=== PATIENT | female | born 1985 | race American Indian/Alaskan Native ===

== ENCOUNTER 2016-11-13 07:00 | Emergency (ER) | payer SELFPAY ==
[2016-11-13 07:49] VITALS: BP 141/75
--- NOTE | 2016-11-13 08:04 | Emergency Department Report ---
ED Female HPI - General Chief complaint: Urogenital-Female Stated complaint: VAGINAL DISCHARGE Time Seen by Provider: 11/13/16 07:56 Source: patient Mode of arrival: Ambulatory Limitations: No Limitations - History of Present Illness Initial comments: Patient presents c/o white, thick discharge from her vaginal x 4 days. States discharge smells like fish and started as soon as she got off her cycle on 11/10/16. Admits to douching after her cycle. Denies fever, chills, N.V/D, abdomen or flank pain, dysuria, urgency, frequency. Denies recent abx use. No other symptoms or complaints today. LMP 11/05/16. - Related Data Previous Rx's Medication Instructions Recorded Last Taken Type metroNIDAZOLE [Flagyl] 500 mg PO Q12HR #14 tab 11/13/16 Unknown Rx Allergies Allergy/AdvReac Type Severity Reaction Status Date / Time Penicillins Allergy Hives Verified 11/13/16 07:46 ED Review of Systems ROS: Stated complaint: VAGINAL DISCHARGE Other details as noted in HPI Comment: All other systems reviewed and negative ED Past Medical Hx - Medications Home Medications: Home Medications Medication Instructions Recorded Confirmed Last Taken Type metroNIDAZOLE [Flagyl] 500 mg PO Q12HR #14 tab 11/13/16 Unknown Rx ED Physical Exam - General Limitations: No Limitations General appearance: alert, in no apparent distress - Head Head exam: Present: atraumatic, normocephalic - Eye Eye exam: Present: normal appearance, PERRL, EOMI. Absent: scleral icterus, conjunctival injection, periorbital swelling - Neck Neck exam: Present: normal inspection, full ROM. Absent: tenderness, lymphadenopathy - Respiratory Respiratory exam: Present: normal lung sounds bilaterally. Absent: respiratory distress - Cardiovascular Cardiovascular Exam: Present: regular rate, normal rhythm - GI/Abdominal GI/Abdominal exam: Present: soft, normal bowel sounds. Absent: distended, tenderness (No suprapubic tenderness.), guarding, rebound, rigid - Extremities Exam Extremities exam: Present: normal inspection, full ROM. Absent: pedal edema, joint swelling - Back Exam Back exam: Present: normal inspection, full ROM. Absent: tenderness, CVA tenderness (R), CVA tenderness (L) - Neurological Exam Neurological exam: Present: alert, oriented X3, normal gait - Psychiatric Psychiatric exam: Present: normal affect, normal mood - Skin Skin exam: Present: warm, dry, intact, normal color. Absent: rash, cyanosis, diaphoretic, erythema, petechiae, pallor ED Course Vital Signs 11/13/16 07:46 Temperature 97.8 F Pulse Rate 57 L Respiratory 16 Rate Blood Pressure 141/75 O2 Sat by Pulse 100 Oximetry ED Medical Decision Making - Medical Decision Making 31 YOF with symptoms consistent with BV. Patient is stable. She will be DC'd on oral Flagyl (see rx). Patient education, including stopping douching, follow up/ referral, and return instructions provided. She verbalized understanding and is agreeable to plan. Critical care attestation.: If time is entered above; I have spent that time in minutes in the direct care of this critically ill patient, excluding procedure time. ED Disposition Clinical Impression: Bacterial vaginosis Disposition: DISCHARGED TO HOME OR SELFCARE Is pt being admited?: No Does the pt Need Aspirin: No Condition: Stable Instructions: Bacterial Vaginosis (ED) Additional Instructions: Follow-up instructions for care. Stop douching. Remember instructions on female genitalia hygiene. Follow-up with your PCP for follow-up. Return to ED as needed. Prescriptions: metroNIDAZOLE [Flagyl] 500 mg PO Q12HR #14 tab Referrals: [facility] [Outside] - 2-3 Days Forms: STI Treatment and Prevention, Work/School Release Form(ED)
== END 2016-11-13 08:11 | disposition home or self-care (01) ==
LOC: ED 07:00
DX: N76.0 Acute vaginitis (principal); Z88.0 Allergy status to penicillin
CPT/HCPCS: 99282

== ENCOUNTER 2017-01-02 11:23 | Emergency (ER) | payer SELFPAY ==
--- NOTE | 2017-01-02 14:30 | Emergency Department Report ---
Entered by FRANCIS RUBY, acting as scribe for EDITH BENITES PA. - General Chief Complaint: Upper Respiratory Infection Stated Complaint: COLD SX/ COLD SORE Time Seen by Provider: 01/02/17 13:45 Source: patient Mode of arrival: Ambulatory Limitations: No Limitations - History of Present Illness Initial Comments: 31 y/o female with no significant PMHx and PSHx of tonsillectomy, presents to the ED c/o nasal congestion and productive cough beginning several days ago. Associated symptom of facial sinus pressure, but she denies fever, nausea, vomiting, chills, abdominal pain, chest pain, SOB, wheezing, headache, numbness , and weakness. The patient has been taking aria-seltzer cold and flu , dayquil , and nyquil with no alleviation of the symptoms. Secondary c/o cold sore on the right side of the mouth beginning 3 days ago, and patient denies Hx of cold sores. MD Complaint: cough (productive, at night), nasal congestion, other -: days(s) (several days ago) Severity: moderate Quality: other (pressure) Consistency: constant Improves With: nothing Worsens With: other (supine position) Associated Symptoms: rhinorrhea, nasal congestion, cough (productive, worse at night). denies: fever, chills, headache, sore throat, stiff neck, chest pain, shortness of breath, abdominal pain, nausea, vomiting, diarrhea, dysuria, rash, ear pain Treatments Prior to Arrival: "cold medicine" (OTC aria-seltzer cold and flu, dayquil, nyquil with no alleviation of the symptoms) - Related Data Previous Rx's Medication Instructions Recorded Last Taken Type Fexofenadine/Pseudoephedrine 1 each PO BID #60 tab.er.12h 01/02/17 Unknown Rx [Tona-D 12 Hour Tablet] Fluticasone [Flonase] 1 spray NS QDAY #1 bottle 01/02/17 Unknown Rx Oxymetazoline 0.05% [Afrin] 2 spray NS Q12H #1 bottle 01/02/17 Unknown Rx Allergies Allergy/AdvReac Type Severity Reaction Status Date / Time Penicillins Allergy Hives Verified 01/02/17 11:38 ED Review of Systems Comment: All other systems reviewed and negative Constitutional: denies: chills, fever ENT: other (nasal congestion, sinus pressure, cold sore on the right side of the mouth). denies: ear pain, throat pain Respiratory: cough (productive, worse at night). denies: shortness of breath, wheezing Cardiovascular: denies: chest pain Gastrointestinal: denies: abdominal pain, nausea, vomiting, diarrhea Genitourinary: denies: dysuria Musculoskeletal: denies: back pain Skin: denies: rash Neurological: denies: headache ED Past Medical Hx - Past Medical History Previous Medical History?: No - Surgical History Additional Surgical History: D & C. TONSILLECTOMY - Social History Smoking Status: Current Every Day Smoker Substance Use Type: Alcohol - Medications Home Medications: Home Medications Medication Instructions Recorded Confirmed Last Taken Type Fexofenadine/Pseudoephedrine 1 each PO BID #60 tab.er.12h 01/02/17 Unknown Rx [Tona-D 12 Hour Tablet] Fluticasone [Flonase] 1 spray NS QDAY #1 bottle 01/02/17 Unknown Rx Oxymetazoline 0.05% [Afrin] 2 spray NS Q12H #1 bottle 01/02/17 Unknown Rx ED Physical Exam - General Limitations: No Limitations - Other Other exam information: GENERAL: Patient is alert and oriented x 3. No apparent distress, normal gait, atraumatic. HEAD: Head is normocephalic and atraumatic. EYES: Extraocular movements are intact. Pupils are equal, round, and reactive to light and accommodation. EARS: Symmetrical, atraumatic, non tender, ear canal clear with moderate cerumen , tympanic membrane non inflamed. Gross auditory nml bilaterally. NOSE: Nose symmetrical, nontender. Nares appeared normal. MOUTH:Mouth is well hydrated and without lesions. Mucous membranes are moist. Uvula midline. Tongue not elevated. area consistent with cold sore on the right corner of the mouth. Posterior pharynx clear, no exudate or lesions. Patent airway. Noted is some post nasal drainage. NECK: Supple. Non edematous, no carotid bruits. No lymphadenopathy or thyromegaly. LUNGS: Symmetrical with respiration. No wheezing, rales or crackles, CTAB. HEART: Regular rate and rhythm with normal S1/S2 present. No murmurs, rubs, or gallops. ABDOMEN: Soft, nondistended. Nontender to palpation on all quadrants. No organomegaly was noted. Positive bowel sounds. No CVA tenderness. EXTREMITIES/MUSCULOSKELETAL: No cyanosis, clubbing, rash, lesions or edema. Full ROM bilaterally. UE/LE Pulses 2+ bilaterally. LE and UE 5+ strength bilaterally SKIN: Warm and dry. No lesions, ulceration or induration present NEUROLOGIC: No focal deficit. ED Course Vital Signs 01/02/17 01/02/17 11:35 13:22 Temperature 98.2 F 98.3 F Pulse Rate 69 62 Respiratory 19 18 Rate Blood Pressure 151/95 Blood Pressure 118/70 [Left] O2 Sat by Pulse 100 97 Oximetry ED Medical Decision Making - Medical Decision Making Patient was evaluated by the provider in fast track. 31 y/o female with PSHx of tonsillectomy, presents complaining of nasal congestion and productive cough beginning several days ago, and cold sore on the right side of the mouth beginning 3 days ago. Discussed with the patient to follow up with a PCP as referred, and to return to the ED if her symptoms return or worsen. Patient states understanding and will follow instructions. Vital signs stable, patient is in no acute distress. ED Disposition Clinical Impression: Upper respiratory disease Disposition: DISCHARGED TO HOME OR SELFCARE Is pt being admited?: No Does the pt Need Aspirin: No Condition: Stable Instructions: Viral Syndrome (ED) Additional Instructions: Take her medication as prescribed. Follow up with her primary care provider if symptoms persist or gets worse. Prescriptions: Fexofenadine/Pseudoephedrine [Tona-D 12 Hour Tablet] 1 each PO BID #60 tab.er.12h Fluticasone [Flonase] 1 spray NS QDAY #1 bottle Oxymetazoline 0.05% [Afrin] 2 spray NS Q12H #1 bottle Referrals: PRIMARY CARE, [Primary Care Provider] - 3-5 Days [employer] [facility] [Provider Group] - 3-5 Days [facility] [Provider Group] - 3-5 Days [facility] [Provider Group] - 3-5 Days Forms: Work/School Release Form(ED) This documentation as recorded by the TUNG pike GRACE,accurately reflects the service I personally performed and the decisions made by ,EDITH BENITES PA.
[2017-01-02 14:34] VITALS: BP 120/70
== END 2017-01-02 14:35 | disposition home or self-care (01) ==
LOC: ED 11:23
DX: J39.9 Disease of upper respiratory tract, unspecified (principal); F17.200 Nicotine dependence, unspecified, uncomplicated; Z88.0 Allergy status to penicillin; Z90.89 Acquired absence of other organs
CPT/HCPCS: 99282

== ENCOUNTER 2017-03-27 19:44 | Emergency (ER) | payer SELFPAY ==
--- NOTE | 2017-03-28 00:56 | Emergency Department Report ---
ED Female HPI - General Chief complaint: Urogenital-Female Stated complaint: VAGINAL DISCHARGE Time Seen by Provider: 03/28/17 00:52 Source: patient Mode of arrival: Ambulatory Limitations: No Limitations - History of Present Illness Initial comments: Patient reports that she has vaginal discharge with odor 2 days. Denies any abdominal or vaginal pain. Denies any back pain or vaginal bleeding. Denies any urinary burning frequency or urgency. Pain is 0 out of 10. She said she usually gets bacterial vaginosis so she thinks he has bacterial vaginosis. She does not always practice safe sex. Last menstrual period was 03/18/2017. MD Complaint: vaginal discharge Onset/Timin -: days(s) Severity scale (0 -10): 0 Are you Now?: No Associated Symptoms: vaginal discharge. denies: vaginal bleeding, abdominal pain, nausea/vomiting, fever/chills, headaches, loss of appetite, dysuria, hematuria, rash, seizure, shortness of breath, syncope, weakness - Related Data Sexually active: Yes Previous Rx's Medication Instructions Recorded Last Taken Type Fexofenadine/Pseudoephedrine 1 each PO BID #60 tab.er.12h 01/02/17 Unknown Rx [Tona-D 12 Hour Tablet] Fluticasone [Flonase] 1 spray NS QDAY #1 bottle 01/02/17 Unknown Rx Oxymetazoline 0.05% [Afrin] 2 spray NS Q12H #1 bottle 01/02/17 Unknown Rx Doxycycline [Vibramycin CAP] 100 mg PO Q12HR #14 capsule 03/28/17 Unknown Rx Nitrofurantoin [place]/M-Cryst 100 mg PO Q12HR #14 capsule 03/28/17 Unknown Rx [Macrobid CAP] metroNIDAZOLE [Flagyl] 500 mg PO Q12HR #14 tab 03/28/17 Unknown Rx Allergies Allergy/AdvReac Type Severity Reaction Status Date / Time Penicillins Allergy Hives Verified 01/02/17 11:38 ED Review of Systems ROS: Stated complaint: VAGINAL DISCHARGE Other details as noted in HPI Comment: All other systems reviewed and negative Constitutional: denies: chills, fever Eyes: denies: eye pain, vision change ENT: denies: ear pain, throat pain, congestion Respiratory: no symptoms reported Cardiovascular: denies: chest pain, palpitations, edema, syncope Gastrointestinal: denies: abdominal pain, nausea, vomiting Genitourinary: discharge. denies: urgency, dysuria, frequency, hematuria, abnormal menses, dyspareunia Musculoskeletal: denies: back pain, joint swelling, arthralgia, myalgia Skin: denies: rash Neurological: denies: headache ED Past Medical Hx - Past Medical History Previous Medical History?: No - Surgical History Past Surgical History?: Yes Additional Surgical History: D & C. TONSILLECTOMY - Family History Family history: no significant - Social History Smoking Status: Never Smoker Substance Use Type: Alcohol - Medications Home Medications: Home Medications Medication Instructions Recorded Confirmed Last Taken Type Fexofenadine/Pseudoephedrine 1 each PO BID #60 tab.er.12h 01/02/17 Unknown Rx [Tona-D 12 Hour Tablet] Fluticasone [Flonase] 1 spray NS QDAY #1 bottle 01/02/17 Unknown Rx Oxymetazoline 0.05% [Afrin] 2 spray NS Q12H #1 bottle 01/02/17 Unknown Rx Doxycycline [Vibramycin CAP] 100 mg PO Q12HR #14 capsule 03/28/17 Unknown Rx Nitrofurantoin [place]/M-Cryst 100 mg PO Q12HR #14 capsule 03/28/17 Unknown Rx [Macrobid CAP] metroNIDAZOLE [Flagyl] 500 mg PO Q12HR #14 tab 03/28/17 Unknown Rx ED Physical Exam - General Limitations: No Limitations General appearance: alert, in no apparent distress - Head Head exam: Present: atraumatic, normocephalic, normal inspection - Eye Eye exam: Present: normal appearance, PERRL, EOMI. Absent: scleral icterus, conjunctival injection, periorbital swelling, periorbital tenderness Pupils: Present: normal accommodation - ENT ENT exam: Present: normal exam, normal orophraynx, mucous membranes moist, TM's normal bilaterally, normal external ear exam - Neck Neck exam: Present: normal inspection, full ROM. Absent: tenderness, meningismus, lymphadenopathy - Expanded Neck Exam Expanded Neck exam: Absent: tenderness, midline deformity, anterior neck swelling, tracheal deviation - Respiratory Respiratory exam: Present: normal lung sounds bilaterally. Absent: respiratory distress, chest wall tenderness - Cardiovascular Cardiovascular Exam: Present: regular rate, normal rhythm, normal heart sounds - GI/Abdominal GI/Abdominal exam: Present: soft, normal bowel sounds. Absent: distended, tenderness, guarding, rebound, rigid - External exam: Present: normal external exam. Absent: erythema, swelling, lesions, lacerations, ecchymosis, bleeding Speculum exam: Present: vaginal discharge, cervical discharge. Absent: erythema , vaginal bleeding, foreign body, tissue, laceration Bi-manual exam: Present: normal bi-manual exam. Absent: cervical motion tendernes, adnexal tenderness, adnexal mass, uterine enlargement, uterine tenderness - Extremities Exam Extremities exam: Present: normal inspection, full ROM, normal capillary refill. Absent: tenderness, pedal edema, joint swelling, calf tenderness - Back Exam Back exam: Present: normal inspection, full ROM. Absent: tenderness, CVA tenderness (R), CVA tenderness (L), muscle spasm, paraspinal tenderness, vertebral tenderness, rash noted - Neurological Exam Neurological exam: Present: alert, oriented X3, normal gait, reflexes normal. Absent: motor sensory deficit - Psychiatric Psychiatric exam: Present: normal affect, normal mood - Skin Skin exam: Present: warm, dry, intact, normal color. Absent: rash ED Course Vital Signs 03/27/17 20:51 Temperature 99.2 F Pulse Rate 77 Respiratory 18 Rate Blood Pressure 139/88 O2 Sat by Pulse 98 Oximetry - Reevaluation(s) Reevaluation #1: 03/28/17 03:10 Patient given azithromycin 1 g by mouth in the emergency room to cover chlamydia. Patient with positive trichomonas negative Yeast and greater than 20 % to cells on wet prep. Urinalysis is also positive for bacterial infection and test is negative. Patient shows to be treated empirically for gonorrhea and chlamydia. She is allergic to penicillin so alternative will be doxycycline and I spoke with her about this. ED Medical Decision Making - Lab Data Lab Results 03/28/17 Range/Units 01:00 Urine Color Yellow (Yellow) Urine Turbidity Cloudy (Clear) Urine pH 5.0 (5.0-7.0) Ur Specific [place] 1.024 (1.003-1.030) Urine Protein <15 mg/dl (Negative) mg/dL Urine Glucose (UA) Neg (Negative) mg/dL Urine Ketones Neg (Negative) mg/dL Urine Blood Neg (Negative) Urine Nitrite Neg (Negative) Urine Bilirubin Neg (Negative) Urine Urobilinogen < 2.0 (<2.0) mg/dL Ur Leukocyte Esterase Mod (Negative) Urine WBC (Auto) 22.0 H (0.0-6.0) /HPF Urine RBC (Auto) 3.0 (0.0-6.0) /HPF U Epithel Cells (Auto) 32.0 H (0-13.0) /HPF Urine Bacteria (Auto) 1+ (Negative) /HPF Urine WBC Clumps 1+ /HPF Urine HCG, Qual Negative (Negative) Urine culture pending [facility] pending Positive Trichomonas and greater than 20% clue cells. Negative - Medical Decision Making ED course: Patient here complaining of foul smelling discharge 2 days. Patient was tested for gonorrhea and chlamydia and results are pending. Wet prep reveals the patient has positive trichomonas, positive bacterial vaginosis and negative use. Urine positive for urinary tract infection without any blood and urine cultures sent and pending. I discussed results with patient and she opts to be treated for gonorrhea and chlamydia instead of waiting for results. Patient given azithromycin 1 g. Emergency room to cover chlamydia and she is allergic to penicillin so she will be treated for gonorrhea and doxycycline , Bacterial vaginosis and Trichomonas with Flagyl. Patient will be treated for urinary tract infection with Macrobid. This understands instructions and discharged home in stable condition with prescription for doxycycline, Flagyl and Macrobid. Encouraged her to tell her partner that she was treated for STD and emergency room and positive for Trichomonas. I also encourage her that she needs to practice safe sex and follow up with health department in 7-10 days for repeat STD check. Critical care attestation.: If time is entered above; I have spent that time in minutes in the direct care of this critically ill patient, excluding procedure time. ED Disposition Clinical Impression: BV (bacterial vaginosis), Trichomoniasis of vagina, STD (female), Vaginal discharge, Acute cystitis without hematuria Disposition: DC-01 TO HOME OR SELFCARE Is pt being admited?: No Does the pt Need Aspirin: No Condition: Stable Instructions: Bacterial Vaginosis (ED), Trichomoniasis (ED), Urinary Tract Infection in Women (ED), Safe Sex (ED), Sexually Transmitted Diseases (ED) Additional Instructions: refrain from having sex next 2 week Practice safe sex tell partner that you treated for STD in emergency room and they will need to get tested. Follow-up with health department in 7-10 days for repeat testing Please do not drink alcohol while taking Flagyl because the ear will have severe nausea vomiting and stomach upset. Prescriptions: Doxycycline [Vibramycin CAP] 100 mg PO Q12HR #14 capsule metroNIDAZOLE [Flagyl] 500 mg PO Q12HR #14 tab Nitrofurantoin Magoffin/M-Cryst [Macrobid CAP] 100 mg PO Q12HR #14 capsule Referrals: PRIMARY CARE, [Primary Care Provider] - 3-[address] [facility] [Outside] - 7-10 days Forms: STI Treatment and Prevention, Work/School Release Form(ED)
[2017-03-28 01:42] LABS: Bacteria,Urine 1+ /HPF (Negative); Bilirubin,Urine NEG (Negative); Blood,Urine NEG (Negative); Ketones,Urine NEG (Negative); Leukocyte Esterase,Urine MOD (Negative); Nitrite,Urine NEG (Negative); Protein,Urine <15 mg/dL mg/dL (Negative); Urobilinogen,Urine < 2.0 mg/dL (<2.0)
[2017-03-28] MEDS ORDERED: ZITHROMAX PO ONE (03:08)
[2017-03-28 03:31] VITALS: BP 155/81
== END 2017-03-28 03:30 | disposition home or self-care (01) ==
LOC: ED 19:44
DX: N76.0 Acute vaginitis (principal); A59.01 Trichomonal vulvovaginitis; N30.00 Acute cystitis without hematuria; Z88.0 Allergy status to penicillin
CPT/HCPCS: 81001; 81025; 87086; 87210; 87591; 99284

== ENCOUNTER → 2018-06-04 12:10 | Emergency (ER) | payer SELFPAY | END | disposition left against medical advice (07) | LOC: ED 12:10 | DX: J00 Acute nasopharyngitis [common cold] (principal); Z53.21 Procedure and treatment not carried out due to patient leaving prior to being seen by health care provider ==

== ENCOUNTER 2018-06-05 14:53 | Emergency (ER) | payer SELFPAY ==
[2018-06-05] MEDS ORDERED: TESSALON PERLES PO ONE (15:33)
--- NOTE | 2018-06-05 15:58 | Emergency Department Report ---
- General Chief Complaint: Upper Respiratory Infection Stated Complaint: CHEST COLD Time Seen by Provider: 06/05/18 15:29 Source: patient Mode of arrival: Ambulatory Limitations: No Limitations - History of Present Illness Initial Comments: This is a 32-year-old female nontoxic, well nourished in appearance, no acute signs of distress presents to the ED with c/o of productive cough, rhinorrhea, nasal congestion x4 days. Patient describes productive cough as yellow mucus production. Patient denies any sick contact. Patient denies any recent travels , long car, recent hospital stays. Patient denies any calf pain or calf tenderness. Patient denies any chest pain, short of breath, fever, chills, nausea, vomiting, hemoptysis, numbness, tingling, headache or stiff neck. Patient stated allergies to PCN. Denies significant PMH. MD Complaint: cough, rhinorrhea, nasal congestion -: days(s) (4) Severity: mild Severity scale (0 -10): 0 Consistency: constant Improves With: nothing Worsens With: nothing Associated Symptoms: rhinorrhea, nasal congestion, cough. denies: fever, chills , myalgias, diaphoresis, headache, sore throat, stiff neck, chest pain, shortness of breath, abdominal pain, nausea, vomiting, diarrhea, dysuria, rash, confusion, right sweats, weight loss, epistaxis, hoarseness, ear pain Treatments Prior to Arrival: none - Related Data Previous Rx's Medication Instructions Recorded Last Taken Type Fexofenadine/Pseudoephedrine 1 each PO BID #60 tab.er.12h 01/02/17 Unknown Rx [Tona-D 12 Hour Tablet] Fluticasone [Flonase] 1 spray NS QDAY #1 bottle 01/02/17 Unknown Rx Oxymetazoline 0.05% [Afrin] 2 spray NS Q12H #1 bottle 01/02/17 Unknown Rx Doxycycline [Vibramycin CAP] 100 mg PO Q12HR #14 capsule 03/28/17 Unknown Rx Nitrofurantoin [place]/M-Cryst 100 mg PO Q12HR #14 capsule 03/28/17 Unknown Rx [Macrobid CAP] metroNIDAZOLE [Flagyl] 500 mg PO Q12HR #14 tab 03/28/17 Unknown Rx Azithromycin [Zithromax Z-KASSANDRA] 250 mg PO DAILY #6 tablet 06/05/18 Unknown Rx Benzonatate [Tessalon Perle] 100 mg PO DAILY PRN #20 capsule 06/05/18 Unknown Rx Ibuprofen [Motrin] 600 mg PO Q8H PRN #30 tablet 06/05/18 Unknown Rx Prednisone [predniSONE 10 mg 10 mg PO .TAPER #1 tab.ds.pk 06/05/18 Unknown Rx (6-Day Pack, 21 Tabs)] Allergies Allergy/AdvReac Type Severity Reaction Status Date / Time Penicillins Allergy Hives Verified 01/02/17 11:38 ED Review of Systems ROS: Stated complaint: CHEST COLD Other details as noted in HPI Constitutional: denies: chills, fever Eyes: denies: eye pain, eye discharge, vision change ENT: denies: ear pain, throat pain Respiratory: cough. denies: shortness of breath, wheezing Cardiovascular: denies: chest pain, palpitations Endocrine: no symptoms reported Gastrointestinal: denies: abdominal pain, nausea, vomiting, diarrhea Genitourinary: denies: urgency, dysuria, discharge Musculoskeletal: denies: back pain, joint swelling, arthralgia Skin: denies: rash, lesions Neurological: denies: headache, weakness, paresthesias Psychiatric: denies: anxiety, depression Hematological/Lymphatic: denies: easy bleeding, easy bruising ED Past Medical Hx - Past Medical History Previous Medical History?: No - Surgical History Past Surgical History?: Yes Additional Surgical History: D & C. TONSILLECTOMY - Social History Smoking Status: Current Every Day Smoker Substance Use Type: Alcohol - Medications Home Medications: Home Medications Medication Instructions Recorded Confirmed Last Taken Type Fexofenadine/Pseudoephedrine 1 each PO BID #60 tab.er.12h 01/02/17 Unknown Rx [Tona-D 12 Hour Tablet] Fluticasone [Flonase] 1 spray NS QDAY #1 bottle 01/02/17 Unknown Rx Oxymetazoline 0.05% [Afrin] 2 spray NS Q12H #1 bottle 01/02/17 Unknown Rx Doxycycline [Vibramycin CAP] 100 mg PO Q12HR #14 capsule 03/28/17 Unknown Rx Nitrofurantoin [place]/M-Cryst 100 mg PO Q12HR #14 capsule 03/28/17 Unknown Rx [Macrobid CAP] metroNIDAZOLE [Flagyl] 500 mg PO Q12HR #14 tab 03/28/17 Unknown Rx Azithromycin [Zithromax Z-KASSANDRA] 250 mg PO DAILY #6 tablet 06/05/18 Unknown Rx Benzonatate [Tessalon Perle] 100 mg PO DAILY PRN #20 capsule 06/05/18 Unknown Rx Ibuprofen [Motrin] 600 mg PO Q8H PRN #30 tablet 06/05/18 Unknown Rx Prednisone [predniSONE 10 mg 10 mg PO .TAPER #1 tab.ds.pk 06/05/18 Unknown Rx (6-Day Pack, 21 Tabs)] ED Physical Exam - General Limitations: No Limitations General appearance: alert, in no apparent distress - Head Head exam: Present: atraumatic, normocephalic - Eye Eye exam: Present: normal appearance Pupils: Present: normal accommodation - ENT ENT exam: Present: normal exam, mucous membranes moist - Neck Neck exam: Present: normal inspection, full ROM. Absent: tenderness, meningismus, lymphadenopathy - Respiratory Respiratory exam: Present: normal lung sounds bilaterally. Absent: respiratory distress, wheezes, rales, rhonchi, stridor, chest wall tenderness, accessory muscle use, decreased breath sounds, prolonged expiratory - Cardiovascular Cardiovascular Exam: Present: regular rate, normal rhythm, normal heart sounds. Absent: bradycardia, tachycardia, irregular rhythm, systolic murmur, diastolic murmur, rubs, gallop - GI/Abdominal GI/Abdominal exam: Present: soft, normal bowel sounds - Extremities Exam Extremities exam: Present: normal inspection, full ROM, normal capillary refill. Absent: tenderness - Back Exam Back exam: Present: normal inspection, full ROM - Neurological Exam Neurological exam: Present: alert, oriented X3, normal gait - Psychiatric Psychiatric exam: Present: normal affect, normal mood - Skin Skin exam: Present: warm, dry, intact, normal color. Absent: rash ED Course Vital Signs 06/05/18 15:15 Temperature 98.2 F Pulse Rate 86 Blood Pressure 129/83 O2 Sat by Pulse 97 Oximetry - Reevaluation(s) Reevaluation #1: 06/05/18 15:52 Patient is speaking in full sentences with no signs of distress noted. ED Medical Decision Making - Medical Decision Making This is a 32-year-old female that presents with bronchitis. Patient is stable and was examined by me. Chest x-ray has been obtained and dictated by radiologist with normal exam. Patient is notified of x-ray results with no questions noted. Due to patient having symptoms of upper respiratory infection and worsening I will treat patient empirically with zpak. Patient was instructed to increase hydration, rest and take Motrin for fever episodes. Patient received tesslone perrls in the ED. Vitals stable. Patient is nonfebrile and normal heart rate. Patient was instructed Follow-up with a primary care doctor in 3-5 days or if symptoms worsen and continue return to emergency room as soon as possible. At time time of discharge, the patient does not seem toxic or ill in appearance. No acute signs of distress noted. Patient agrees to discharge treatment plan of care. No further questions noted by the patient. Critical care attestation.: If time is entered above; I have spent that time in minutes in the direct care of this critically ill patient, excluding procedure time. ED Disposition Clinical Impression: Bronchitis Disposition: DC-01 TO HOME OR SELFCARE Is pt being admited?: No Does the pt Need Aspirin: No Condition: Stable Instructions: Acute Bronchitis (ED) Additional Instructions: Follow-up with a primary care doctor in 3-5 days or if symptoms worsen and continue return to emergency room as soon as possible. Prescriptions: Azithromycin [Zithromax Z-KASSANDRA] 250 mg PO DAILY #6 tablet Benzonatate [Tessalon Perle] 100 mg PO DAILY PRN #20 capsule PRN Reason: Cough Ibuprofen [Motrin] 600 mg PO Q8H PRN #30 tablet PRN Reason: Pain Prednisone [predniSONE 10 mg (6-Day Pack, 21 Tabs)] 10 mg PO .TAPER #1 tab.ds.pk Referrals: PRIMARY MD NOE [Referring] - 3-5 Days CHYNA STEWART MD [Staff Physician] - 3-5 Days [facility] [Outside] - 3-5 Days [facility] [Outside] - 3-5 Days Forms: Work/School Release Form(ED)
--- NOTE | 2018-06-05 16:20 | XRay Report ---
FINAL REPORT EXAM: XR CHEST ROUTINE 2V HISTORY: cough TECHNIQUE: Two view chest PA and lateral PRIORS: None. FINDINGS: Cardiac and mediastinal contours are unremarkable. No focal pulmonary infiltrate is identified. No pleural fluid collection seen. Pulmonary vasculature is unremarkable. IMPRESSION: Negative two-view chest
[2018-06-05 16:40] VITALS: BP 136/72
== END 2018-06-05 16:41 | disposition home or self-care (01) ==
LOC: ED 14:53
DX: J40 Bronchitis, not specified as acute or chronic (principal); F17.200 Nicotine dependence, unspecified, uncomplicated; Z90.89 Acquired absence of other organs; Z88.0 Allergy status to penicillin; Z79.899 Other long term (current) drug therapy
CPT/HCPCS: 71046; 99283

== ENCOUNTER 2018-10-24 02:51 | Emergency (ER) | payer SELFPAY ==
[2018-10-24 03:01] VITALS: BP 122/74
--- NOTE | 2018-10-24 04:07 | Emergency Department Report ---
ED Female HPI - General Chief complaint: Urogenital-Female Stated complaint: VAG DISCHARGE Time Seen by Provider: 10/24/18 04:00 Source: patient, family Mode of arrival: Ambulatory Limitations: No Limitations - History of Present Illness Initial comments: Patient 33-year-old -[place] female who presents for vaginal discharge of white thick malodorous fishy smell 3 days patient is and concerning for STI endorses this is beefy if she's had BV previously there is no rashes lesions or open sores on his abdominal pain cramping nausea vomiting no fever or chills plan we'll obtain wet prep UA hCG GC chlamydia , LMP was 2 weeks ago Complaint: vaginal discharge Onset/Timin -: days(s) Radiation: non-radiating Severity: moderate Severity scale (0 -10): 4 Quality: other (discharg white thick maloderous ) Consistency: constant Improves with: none Worsens with: none Are you Now?: No Last Menstrual Period: 10/07/18 EDC: 07/14/19 Associated Symptoms: vaginal discharge - Related Data Sexually active: Yes : 2 Para: 2 A: 0 Previous Rx's Medication Instructions Recorded Last Taken Type Fexofenadine/Pseudoephedrine 1 each PO BID #60 tab.er.12h 01/02/17 Unknown Rx [Tona-D 12 Hour Tablet] Fluticasone [Flonase] 1 spray NS QDAY #1 bottle 01/02/17 Unknown Rx Oxymetazoline 0.05% [Afrin] 2 spray NS Q12H #1 bottle 01/02/17 Unknown Rx Doxycycline [Vibramycin CAP] 100 mg PO Q12HR #14 capsule 03/28/17 Unknown Rx Nitrofurantoin [place]/M-Cryst 100 mg PO Q12HR #14 capsule 03/28/17 Unknown Rx [Macrobid CAP] metroNIDAZOLE [Flagyl] 500 mg PO Q12HR #14 tab 03/28/17 Unknown Rx Azithromycin [Zithromax Z-KASSANDRA] 250 mg PO DAILY #6 tablet 06/05/18 Unknown Rx Benzonatate [Tessalon Perle] 100 mg PO DAILY PRN #20 capsule 06/05/18 Unknown Rx Ibuprofen [Motrin] 600 mg PO Q8H PRN #30 tablet 06/05/18 Unknown Rx Prednisone [predniSONE 10 mg 10 mg PO .TAPER #1 tab.ds.pk 06/05/18 Unknown Rx (6-Day Pack, 21 Tabs)] Doxycycline [Vibramycin CAP] 100 mg PO Q12HR #20 capsule 10/24/18 Unknown Rx Allergies Allergy/AdvReac Type Severity Reaction Status Date / Time Penicillins Allergy Hives Verified 01/02/17 11:38 ED Review of Systems ROS: Stated complaint: VAG DISCHARGE Other details as noted in HPI Constitutional: denies: chills, fever Eyes: denies: eye pain, eye discharge, vision change ENT: denies: ear pain, throat pain Respiratory: denies: cough, shortness of breath, wheezing Cardiovascular: denies: chest pain, palpitations Endocrine: no symptoms reported Gastrointestinal: denies: abdominal pain, nausea, vomiting, diarrhea Genitourinary: discharge Musculoskeletal: denies: back pain, joint swelling, arthralgia Skin: denies: rash, lesions Neurological: denies: headache, weakness, paresthesias Psychiatric: denies: anxiety, depression Hematological/Lymphatic: denies: easy bleeding, easy bruising ED Past Medical Hx - Past Medical History Previous Medical History?: No - Surgical History Past Surgical History?: Yes Additional Surgical History: D & C. TONSILLECTOMY - Social History Smoking Status: Current Every Day Smoker Substance Use Type: None - Medications Home Medications: Home Medications Medication Instructions Recorded Confirmed Last Taken Type Fexofenadine/Pseudoephedrine 1 each PO BID #60 tab.er.12h 01/02/17 Unknown Rx [Tona-D 12 Hour Tablet] Fluticasone [Flonase] 1 spray NS QDAY #1 bottle 01/02/17 Unknown Rx Oxymetazoline 0.05% [Afrin] 2 spray NS Q12H #1 bottle 01/02/17 Unknown Rx Doxycycline [Vibramycin CAP] 100 mg PO Q12HR #14 capsule 03/28/17 Unknown Rx Nitrofurantoin [place]/M-Cryst 100 mg PO Q12HR #14 capsule 03/28/17 Unknown Rx [Macrobid CAP] metroNIDAZOLE [Flagyl] 500 mg PO Q12HR #14 tab 03/28/17 Unknown Rx Azithromycin [Zithromax Z-KASSANDRA] 250 mg PO DAILY #6 tablet 06/05/18 Unknown Rx Benzonatate [Tessalon Perle] 100 mg PO DAILY PRN #20 capsule 06/05/18 Unknown Rx Ibuprofen [Motrin] 600 mg PO Q8H PRN #30 tablet 06/05/18 Unknown Rx Prednisone [predniSONE 10 mg 10 mg PO .TAPER #1 tab.ds.pk 06/05/18 Unknown Rx (6-Day Pack, 21 Tabs)] Doxycycline [Vibramycin CAP] 100 mg PO Q12HR #20 capsule 10/24/18 Unknown Rx ED Physical Exam - General Limitations: No Limitations General appearance: alert, in no apparent distress - Head Head exam: Present: atraumatic, normocephalic - Eye Eye exam: Present: normal appearance - ENT ENT exam: Present: mucous membranes moist - Neck Neck exam: Present: normal inspection - Respiratory Respiratory exam: Present: normal lung sounds bilaterally. Absent: respiratory distress - Cardiovascular Cardiovascular Exam: Present: regular rate, normal rhythm. Absent: systolic murmur, diastolic murmur, rubs, gallop - GI/Abdominal GI/Abdominal exam: Present: soft, normal bowel sounds - Rectal Rectal exam: Present: deferred - External exam: Present: normal external exam. Absent: erythema, swelling, lesions, lacerations, ecchymosis, bleeding Speculum exam: Present: erythema, vaginal discharge (white thick malodorous ). Absent: cervical discharge, vaginal bleeding, foreign body, tissue, laceration Bi-manual exam: Absent: cervical motion tendernes - Extremities Exam Extremities exam: Present: normal inspection - Back Exam Back exam: Present: normal inspection, full ROM. Absent: tenderness, CVA tenderness (R), CVA tenderness (L) - Neurological Exam Neurological exam: Present: alert, oriented X3 - Psychiatric Psychiatric exam: Present: normal affect, normal mood - Skin Skin exam: Present: warm, dry, intact, normal color. Absent: rash ED Course Vital Signs 10/24/18 02:56 Temperature 98 F Pulse Rate 67 Respiratory 18 Rate Blood Pressure 122/74 O2 Sat by Pulse 99 Oximetry ED Medical Decision Making - Lab Data Labs 10/24/18 10/24/18 04:00 04:00 Urine Color Neena Urine Turbidity Slightly-cloudy Urine pH 5.0 Ur Specific Hensley 1.030 Urine Protein 30 mg/dl Urine Glucose (UA) Neg Urine Ketones Tr Urine Blood Neg Urine Nitrite Neg Urine Bilirubin Neg Urine Urobilinogen 4.0 Ur Leukocyte Esterase Lg Urine WBC (Auto) 43.0 H Urine RBC (Auto) 37.0 U Epithel Cells (Auto) 30.0 H Urine Bacteria (Auto) 2+ Hyaline Casts 4 Urine Mucus 3+ Urine HCG, Qual Negative wet prep: pos clues, and moderate Trichomonas - Radiology Data Radiology results: report reviewed, image reviewed (versus October 26.) - Medical Decision Making Wet prep for trichomonas includes no cmt on vaginal exam treated for Trichomonas STI follow up PCP N2 to 3 days department for HIV and HSV screening return to emergency should symptoms worsen patient verbalizes agreement and understanding of the discharge plan will be DC'd to home in stable condition at this time Critical care attestation.: If time is entered above; I have spent that time in minutes in the direct care of this critically ill patient, excluding procedure time. ED Disposition Clinical Impression: STI (sexually transmitted infection), Trichomonas vaginitis, BV (bacterial vaginosis) Disposition: DC-01 TO HOME OR SELFCARE Is pt being admited?: No Does the pt Need Aspirin: No Condition: Stable Instructions: Bacterial Vaginosis (ED), Sexually Transmitted Diseases (ED), Trichomoniasis (ED) Prescriptions: Doxycycline [Vibramycin CAP] 100 mg PO Q12HR #20 capsule Referrals: PRIMARY CARE, [Primary Care Provider] - 3-5 Days Forms: STI Treatment and Prevention Time of Disposition: 05:41
[2018-10-24 04:52] LABS: Bacteria,Urine 2+ /HPF (Negative); Bilirubin,Urine NEG (Negative); Blood,Urine NEG (Negative); Color,Urine Amber (Yellow); Hyaline Casts,Urine 4 /LPF; Mucus,Urine 3+ /HPF
[2018-10-24 04:59] LABS: HCG Qualitative,Urine Negative (Negative)
[2018-10-24] MEDS ORDERED: FLAGYL PO ONE (05:38)
[2018-10-24] MEDS ORDERED: ZITHROMAX PO ONE (05:38)
[2018-10-24] MEDS ORDERED: XYLOCAINE 1% MPF 5 mL INFILTRATI ONE (05:38)
[2018-10-24] MEDS ORDERED: ROCEPHIN IM ONE (05:38)
== END 2018-10-24 07:00 | disposition home or self-care (01) ==
LOC: ED 02:51
DX: N76.0 Acute vaginitis (principal); A59.01 Trichomonal vulvovaginitis; B96.89 Other specified bacterial agents as the cause of diseases classified elsewhere; F17.200 Nicotine dependence, unspecified, uncomplicated; Z90.89 Acquired absence of other organs; Z88.0 Allergy status to penicillin
CPT/HCPCS: 81001; 81025; 87210; 87591; 96372; 99284; J0696

== ENCOUNTER 2018-12-01 17:11 | Emergency (ER) | payer OTHER ==
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
[2018-12-01 17:21] VITALS: BP 141/86
[2018-12-01] MEDS ORDERED: TORADOL IM ONE (20:30)
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
== END 2018-12-01 20:51 | disposition home or self-care (01) ==
LOC: ED 17:11
DX: S39.012A Strain of muscle, fascia and tendon of lower back, initial encounter (principal); M54.41 Lumbago with sciatica, right side; F17.200 Nicotine dependence, unspecified, uncomplicated; Z90.89 Acquired absence of other organs; Z88.0 Allergy status to penicillin; V89.2XXA Person injured in unspecified motor-vehicle accident, traffic, initial encounter; Y93.89 Activity, other specified; Y99.8 Other external cause status; Y92.410 Unspecified street and highway as the place of occurrence of the external cause
CPT/HCPCS: 72100; 96372; 99283; J1885

== ENCOUNTER 2019-08-24 10:30 | Emergency (ER) | payer SELFPAY ==
[2019-08-24 11:28] VITALS: BP 129/89
--- NOTE | 2019-08-24 11:32 | Emergency Department Report ---
HPI - General Chief Complaint: Upper Respiratory Infection Time Seen by Provider: 08/24/19 11:10 - HPI HPI: 33-year-old -[place] female presents with a 2-3 day history of some cold-like symptoms including a productive cough, runny nose and head and chest congestion. No fever. No past medical history. She has not taken anything for her symptoms prior to presentation. No PCP. ED Past Medical Hx - Past Medical History Previous Medical History?: No - Surgical History Past Surgical History?: Yes Additional Surgical History: D & C. TONSILLECTOMY - Social History Smoking Status: Never Smoker Substance Use Type: None - Medications Home Medications: Home Medications Medication Instructions Recorded Confirmed Last Taken Type Fexofenadine/Pseudoephedrine 1 each PO BID #60 tab.er.12h 01/02/17 Unknown Rx [Tona-D 12 Hour Tablet] Fluticasone [Flonase] 1 spray NS QDAY #1 bottle 01/02/17 Unknown Rx Oxymetazoline 0.05% [Afrin] 2 spray NS Q12H #1 bottle 01/02/17 Unknown Rx DOXYCYCLINE Hyclate [Vibramycin 100 mg PO Q12HR #14 capsule 03/28/17 Unknown Rx CAP] Nitrofurantoin [place]/M-Cryst 100 mg PO Q12HR #14 capsule 03/28/17 Unknown Rx [Macrobid CAP] metroNIDAZOLE [Flagyl] 500 mg PO Q12HR #14 tab 03/28/17 Unknown Rx Azithromycin [Zithromax Z-KASSANDRA] 250 mg PO DAILY #6 tablet 06/05/18 Unknown Rx Benzonatate [Tessalon Perle] 100 mg PO DAILY PRN #20 capsule 06/05/18 Unknown Rx Ibuprofen [Motrin] 600 mg PO Q8H PRN #30 tablet 06/05/18 Unknown Rx Prednisone [predniSONE 10 mg 10 mg PO .TAPER #1 tab.ds.pk 06/05/18 Unknown Rx (6-Day Pack, 21 Tabs)] DOXYCYCLINE Hyclate [Vibramycin 100 mg PO Q12HR #20 capsule 10/24/18 Unknown Rx CAP] Baclofen [Lioresal] 10 mg PO TID #15 tab 12/01/18 Unknown Rx Ibuprofen [Motrin 800 MG tab] 800 mg PO Q8HR PRN #15 tablet 12/01/18 Unknown Rx ED Review of Systems ROS: Stated complaint: COUGHING/RUNNY NOSE Other details as noted in HPI Comment: All other systems reviewed and negative Constitutional: denies: chills, fever ENT: congestion Respiratory: cough. denies: shortness of breath Cardiovascular: denies: chest pain Neurological: denies: headache, weakness Physical Exam - Physical Exam Vital Signs: Vital Signs 08/24/19 11:26 Temperature 98.6 F Pulse Rate 74 Respiratory 20 Rate Blood Pressure 129/89 O2 Sat by Pulse 98 Oximetry Physical Exam: GENERAL: The patient is well-developed well-nourished. HENT: Normocephalic. Atraumatic. Patient has moist mucous membranes. EYES: Extraocular motions are intact. NECK: Supple. Trachea is midline. CHEST/LUNGS: Clear to auscultation. There is no respiratory distress noted. HEART/CARDIOVASCULAR: Regular. There is no tachycardia. There is no murmur. ABDOMEN: Abdomen is soft, nontender. Patient has normal bowel sounds. There is no abdominal distention. SKIN: Skin is warm and dry. NEURO: The patient is awake, alert, and oriented. The patient is cooperative. The patient has no focal neurologic deficits. Normal speech. MUSCULOSKELETAL: There is no tenderness or deformity. There is no evidence of acute injury. ED Course Vital Signs 08/24/19 11:26 Temperature 98.6 F Pulse Rate 74 Respiratory 20 Rate Blood Pressure 129/89 O2 Sat by Pulse 98 Oximetry ED Medical Decision Making - Medical Decision Making This patient presents with some upper respiratory/cold like symptoms. Vital signs stable throughout her ED course. She does not appear in any respiratory or Gen. distress. For these reasons, the patient does not appear to have any emergent medical condition. She was given the opportunity to pay a co-pay but did not have any money or desire to do so. The patient has been screened out and will be given outpatient primary care and clinic referrals. Critical Care Time: No Critical care attestation.: If time is entered above; I have spent that time in minutes in the direct care of this critically ill patient, excluding procedure time. ED Disposition Clinical Impression: Upper respiratory infection Disposition: Z- MED SCREENING EXAM-CONT Is pt being admited?: No Condition: Stable Instructions: Upper Respiratory Infection (ED) Additional Instructions: I have given you a referral for a local primary care clinic for follow-up. You can also follow up at an urgent care. Return to the emergency Department with any acute distress. Referrals: [facility] [Outside] - 2-3 Days Forms: Work/School Release Form(ED) Time of Disposition: 11:31
== END 2019-08-24 11:38 | disposition home or self-care (01) ==
LOC: ED 10:30
DX: J06.9 Acute upper respiratory infection, unspecified (principal); Z90.89 Acquired absence of other organs; Z79.899 Other long term (current) drug therapy; Z88.0 Allergy status to penicillin

== ENCOUNTER 2019-11-04 14:38 | Emergency (ER) | payer SELFPAY ==
[2019-11-04 15:10] VITALS: BP 136/70
--- NOTE | 2019-11-04 16:17 | Event Note ---
ED Screening Note Date of service: 11/04/19 Time: 16:04 ED Screening Note: 34 y o female presents with right ear ache x 2 days states worse after washing hair 2 days ago no foreign object in ear, or trauma to ear, loss of earing This initial assessment/diagnostic orders/clinical plan/treatment(s) is/are subject to change based on patients health status, clinical progression and re- assessment by fellow clinical providers in the ED. Further treatment and workup at subsequent clinical providers discretion. Patient/guardian urged not to elope from the ED as their condition may be serious if not clinically assessed and managed. Initial orders include: Pt presents with a non-medical emergency Examination is normal, Vital sign are stable, TM clear bilaterally, no wax, no erythema Pt given information for clinics to follow up with pcp for further treatment and evaluation Also discussed strict return precautions in detail with pt who verbalized understanding
== END 2019-11-04 16:41 | disposition left against medical advice (07) ==
LOC: ED 14:38
DX: H92.01 Otalgia, right ear (principal); Z53.21 Procedure and treatment not carried out due to patient leaving prior to being seen by health care provider

== ENCOUNTER 2020-08-19 17:09 | Emergency (ER) | payer SELFPAY ==
[2020-08-19 21:38] LABS: HCG Qualitative,Urine Positive (Negative)
[2020-08-19 22:02] LABS: Bacteria,Urine 2+ /HPF (Negative); Mucus,Urine 2+ /HPF; Sperm,Urine FEW /HPF (NP)
[2020-08-19 22:05] LABS: Color,Urine Yellow (Yellow)
[2020-08-19 22:06] LABS: Ictotest,Urine Negative (Negative); Urobilinogen,Urine < 2.0 mg/dL (<2.0)
[2020-08-20 00:24] LABS: Basophils # (Auto) 0.1 K/mm3 (0.0-0.1); Basophils % (Auto) 0.4 % (0.0-1.8); Eosinophils # (Auto) 0.1 K/mm3 (0.0-0.4); Eosinophils % (Auto) 0.9 % (0.0-4.3); Hematocrit 31.4 % (30.3-42.9); Hemoglobin 11.4 gm/dl (10.1-14.3); Lymphocytes # (Auto) 2.5 K/mm3 (1.2-5.4); Lymphocytes % (Auto) 20.1 % (13.4-35.0); Mean Corpuscular HGB Conc 36 % (30-34); Mean Corpuscular Volume 100 fl (79-97); Monocytes # (Auto) 0.9 K/mm3 (0.0-0.8); Monocytes % (Auto) 7.4 % (0.0-7.3); Platelet Count 283 K/mm3 (140-440); Red Blood Count 3.15 M/mm3 (3.65-5.03); Red Cell Distribution Width 13.6 % (13.2-15.2)
[2020-08-20 00:33] LABS: Alanine Aminotransferase 13 units/L (7-56); Albumin 3.9 g/dL (3.9-5); Blood Urea Nitrogen 5 mg/dL (7-17); Calcium 9.4 mg/dL (8.4-10.2); Hemolysis Index 2
[2020-08-20 01:01] LABS: BUN/Creatinine Ratio 10
--- NOTE | 2020-08-20 01:18 | Emergency Department Report ---
ED Female HPI - General Chief complaint: Urogenital-Female Stated complaint: poss uti Source: patient Mode of arrival: Ambulatory Limitations: No Limitations - History of Present Illness Initial comments: Patient is a 34-year-old -Algerian female with no past medical history presents to the ED with complaint of acute onset persistent malodorous thick white vaginal discharge for the last 2 days with dark urine. Patient states that the symptoms have been persistent and worse in the last 12 hours. Patient states that her LMP was August 14, 2020 and that she is not currently sexually active for the last 5 months. Patient denies abdominal pain, vaginal bleeding, dyspareunia, dizziness, fever, chills, nausea, vomiting, back pain, chest pain or shortness of breath, diarrhea, urinary frequency and urgency or dysuria. MD Complaint: vaginal discharge (malodorous), other (dark urine) -: Sudden, days(s) (2) Location: other (vaginal) Radiation: non-radiating Severity: moderate Severity scale (0 -10): 0 Quality: dull Consistency: constant Improves with: none Worsens with: none Are you Now?: Yes (possibly) Last Menstrual Period: 08/14/20 EDC: 05/21/21 Associated Symptoms: denies other symptoms, vaginal discharge. denies: vaginal bleeding, abdominal pain, nausea/vomiting, fever/chills, headaches, loss of appetite, dysuria, hematuria, shortness of breath, syncope, weakness, other - Related Data Sexually active: Yes : 2 Para: 0 A: 1 Previous Rx's Medication Instructions Recorded Last Taken Type Fexofenadine/Pseudoephedrine 1 each PO BID #60 tab.er.12h 01/02/17 Unknown Rx [Tona-D 12 Hour Tablet] Fluticasone [Flonase] 1 spray NS QDAY #1 bottle 01/02/17 Unknown Rx Oxymetazoline 0.05% [Afrin] 2 spray NS Q12H #1 bottle 01/02/17 Unknown Rx DOXYCYCLINE Hyclate [Vibramycin 100 mg PO Q12HR #14 capsule 03/28/17 Unknown Rx CAP] Nitrofurantoin [place]/M-Cryst 100 mg PO Q12HR #14 capsule 03/28/17 Unknown Rx [Macrobid CAP] metroNIDAZOLE [Flagyl] 500 mg PO Q12HR #14 tab 03/28/17 Unknown Rx Azithromycin [Zithromax Z-KASSANDRA] 250 mg PO DAILY #6 tablet 06/05/18 Unknown Rx Benzonatate [Tessalon Perle] 100 mg PO DAILY PRN #20 capsule 06/05/18 Unknown Rx Ibuprofen [Motrin] 600 mg PO Q8H PRN #30 tablet 06/05/18 Unknown Rx Prednisone [predniSONE 10 mg 10 mg PO .TAPER #1 tab.ds.pk 06/05/18 Unknown Rx (6-Day Pack, 21 Tabs)] DOXYCYCLINE Hyclate [Vibramycin 100 mg PO Q12HR #20 capsule 10/24/18 Unknown Rx CAP] Baclofen [Lioresal] 10 mg PO TID #15 tab 12/01/18 Unknown Rx Ibuprofen [Motrin 800 MG tab] 800 mg PO Q8HR PRN #15 tablet 12/01/18 Unknown Rx metroNIDAZOLE [Flagyl] 500 mg PO Q12HR #14 tab 08/20/20 Unknown Rx Allergies Allergy/AdvReac Type Severity Reaction Status Date / Time Penicillins Allergy Hives Verified 01/02/17 11:38 ED Review of Systems ROS: Stated complaint: poss uti Other details as noted in HPI Constitutional: denies: chills, fever Eyes: denies: eye pain, eye discharge, vision change ENT: denies: ear pain, throat pain Respiratory: denies: cough, shortness of breath, wheezing Cardiovascular: denies: chest pain, palpitations Endocrine: no symptoms reported Gastrointestinal: denies: abdominal pain, nausea, vomiting, diarrhea, hematemesis, melena Genitourinary: discharge (malodorous white vaginal discharge). denies: urgency, dysuria, frequency, hematuria, abnormal menses, dyspareunia, other Musculoskeletal: denies: back pain, joint swelling, arthralgia Skin: denies: rash, lesions Neurological: denies: headache, weakness, paresthesias Psychiatric: denies: anxiety, depression Hematological/Lymphatic: denies: easy bleeding, easy bruising ED Past Medical Hx - Past Medical History Previous Medical History?: Yes Additional medical history: tonsilectomy, and DC - Surgical History Past Surgical History?: Yes Additional Surgical History: D & C. TONSILLECTOMY - Social History Smoking Status: Current Every Day Smoker Substance Use Type: None - Medications Home Medications: Home Medications Medication Instructions Recorded Confirmed Last Taken Type Fexofenadine/Pseudoephedrine 1 each PO BID #60 tab.er.12h 01/02/17 Unknown Rx [Tona-D 12 Hour Tablet] Fluticasone [Flonase] 1 spray NS QDAY #1 bottle 01/02/17 Unknown Rx Oxymetazoline 0.05% [Afrin] 2 spray NS Q12H #1 bottle 01/02/17 Unknown Rx DOXYCYCLINE Hyclate [Vibramycin 100 mg PO Q12HR #14 capsule 03/28/17 Unknown Rx CAP] Nitrofurantoin [place]/M-Cryst 100 mg PO Q12HR #14 capsule 03/28/17 Unknown Rx [Macrobid CAP] metroNIDAZOLE [Flagyl] 500 mg PO Q12HR #14 tab 03/28/17 Unknown Rx Azithromycin [Zithromax Z-KASSANDRA] 250 mg PO DAILY #6 tablet 06/05/18 Unknown Rx Benzonatate [Tessalon Perle] 100 mg PO DAILY PRN #20 capsule 06/05/18 Unknown Rx Ibuprofen [Motrin] 600 mg PO Q8H PRN #30 tablet 06/05/18 Unknown Rx Prednisone [predniSONE 10 mg 10 mg PO .TAPER #1 tab.ds.pk 06/05/18 Unknown Rx (6-Day Pack, 21 Tabs)] DOXYCYCLINE Hyclate [Vibramycin 100 mg PO Q12HR #20 capsule 10/24/18 Unknown Rx CAP] Baclofen [Lioresal] 10 mg PO TID #15 tab 12/01/18 Unknown Rx Ibuprofen [Motrin 800 MG tab] 800 mg PO Q8HR PRN #15 tablet 12/01/18 Unknown Rx metroNIDAZOLE [Flagyl] 500 mg PO Q12HR #14 tab 08/20/20 Unknown Rx ED Physical Exam - General Limitations: No Limitations General appearance: alert, in no apparent distress - Head Head exam: Present: atraumatic, normocephalic, normal inspection - Eye Eye exam: Present: normal appearance, PERRL, EOMI Pupils: Present: normal accommodation - ENT ENT exam: Present: normal exam, normal orophraynx, mucous membranes moist, TM's normal bilaterally, normal external ear exam - Neck Neck exam: Present: normal inspection, full ROM - Respiratory Respiratory exam: Present: normal lung sounds bilaterally. Absent: respiratory distress, wheezes, rales, rhonchi, stridor, chest wall tenderness, accessory muscle use, decreased breath sounds, prolonged expiratory - Cardiovascular Cardiovascular Exam: Present: regular rate, normal rhythm, normal heart sounds. Absent: systolic murmur, diastolic murmur, rubs, gallop - GI/Abdominal GI/Abdominal exam: Present: soft, normal bowel sounds. Absent: tenderness, guarding, rebound, hyperactive bowel sounds, hypoactive bowel sounds, organomegaly - Bi-manual exam: Present: other (Pelvic exam deferred, patient preferred self swab) - Extremities Exam Extremities exam: Present: normal inspection, full ROM, normal capillary refill - Back Exam Back exam: Present: normal inspection, full ROM. Absent: tenderness, CVA tenderness (R), CVA tenderness (L), muscle spasm, paraspinal tenderness, vertebral tenderness - Neurological Exam Neurological exam: Present: alert, oriented X3, CN II-XII intact, normal gait, reflexes normal - Psychiatric Psychiatric exam: Present: normal affect, normal mood - Skin Skin exam: Present: warm, dry, intact, normal color. Absent: rash ED Course Vital Signs 08/19/20 17:47 Temperature 98.8 F Pulse Rate 90 Respiratory 16 Rate Blood Pressure 140/80 [Right] O2 Sat by Pulse 98 Oximetry ED Medical Decision Making - Lab Data Result diagrams: 08/20/20 00:08 08/20/20 00:08 - Radiology Data Radiology results: report reviewed, image reviewed Findings [address] [address] Ultrasound Report Signed Patient: CLAIRE SALCIDO MR#: [id number] : 1985 Acct:[id number] Age/Sex: 34 / F ADM Date: 08/19/20 Loc: ED Attending Dr: Ordering Physician: SIMONA PAYNE Date of Service: 08/20/20 Procedure(s): US OB transvaginal Accession Number(s): [id number] cc: SIMONA PAYNE ULTRASOUND OBSTETRIC COMPLETE INDICATION / CLINICAL INFORMATION: Positive . Clinical Gestational Age (GA) in weeks, days: Unknown TECHNIQUE: Transabdominal. Transvaginal COMPARISON: None available. FINDINGS: NUMBER: Single PRESENTATION: cephalic PLACENTA: anterior and free of the os. MATERNAL ADNEXA: No significant abnormality. AMNIOTIC FLUID VOLUME: normal AMNIOTIC FLUID INDEX (SUDHA) in cm (if measured): 8.7 cm ANATOMY: Detailed anatomical survey was not performed. There was no obvious abnormality. MEASUREMENTS: - Biparietal Diameter = 7.2 cm = 28 weeks,6 days - Head Circumference = 26.4 cm = 28 weeks, 5 days - Abdominal Circumference = 24.65 cm = 28 weeks, 6 days - Femur Length = 5.3 cm = 28 weeks, 2 days - Estimated Weight (in grams, if calculated): 1260 3:00 AM - Heart Rate (beats per minute): 140 bpm ADDITIONAL FINDINGS: None. PERCENTILE ESTIMATED WEIGHT (if calculated): AVERAGE ULTRASOUND AGE (AUA) in weeks, days = 28 weeks 5 days IMPRESSION: 1. Single intrauterine with AUA of 28 weeks, 5 days 2. No significant sonographic abnormality. Signer Name: Sarah Salomon MD Signed: 08/20/2020 1:30 AM Workstation Name: [id number] Transcribed By: JR Dictated By: Sarah Salomon MD Electronically Authenticated By: Sarah Salomon MD Signed Date/Time: 08/20/20129 DD/ 4 TD/TT: Findings [facility] [address] [place] [address] Ultrasound Report Signed Patient: CLARIE SALCIDO MR#: [id number] : 1985 Acct:[id number] Age/Sex: 34 / F ADM Date: 08/19/20 Loc: ED Attending Dr: Ordering Physician: SIMONA PAYNE Date of Service: 08/20/20 Procedure(s): US OB <= 14 weeks fetus Accession Number(s): [id number] cc: SIMONA PAYNE ULTRASOUND OBSTETRIC COMPLETE INDICATION / CLINICAL INFORMATION: Positive . Clinical Gestational Age (GA) in weeks, days: Unknown TECHNIQUE: Transabdominal. Transvaginal COMPARISON: None available. FINDINGS: NUMBER: Single PRESENTATION: cephalic PLACENTA: anterior and free of the os. MATERNAL ADNEXA: No significant abnormality. AMNIOTIC FLUID VOLUME: normal AMNIOTIC FLUID INDEX (SUDHA) in cm (if measured): 8.7 cm ANATOMY: Detailed anatomical survey was not performed. There was no obvious abnormality. MEASUREMENTS: - Biparietal Diameter = 7.2 cm = 28 weeks,6 days - Head Circumference = 26.4 cm = 28 weeks, 5 days - Abdominal Circumference = 24.65 cm = 28 weeks, 6 days - Femur Length = 5.3 cm = 28 weeks, 2 days - Estimated Weight (in grams, if calculated): 1260 3:00 AM - Heart Rate (beats per minute): 140 bpm ADDITIONAL FINDINGS: None. PERCENTILE ESTIMATED WEIGHT (if calculated): AVERAGE ULTRASOUND AGE (AUA) in weeks, days = 28 weeks 5 days IMPRESSION: 1. Single intrauterine with AUA of 28 weeks, 5 days 2. No significant sonographic abnormality. Signer Name: Sarah Salomon MD Signed: 08/20/2020 1:30 AM Workstation Name: [id number] Transcribed By: JR Dictated By: Sarah Salomon MD Electronically Authenticated By: Sarah Salomon MD Signed Date/Time: 08/20/20 013 DD/ 012 TD/TT: - Medical Decision Making This is a 34-year-old -Algerian female with no past medical history presents to the ED with complaint of acute onset persistent malodorous thick white vaginal discharge for the last 2 days with dark urine. Patient states that the symptoms have been persistent and worse in the last 12 hours. Patient states that her LMP was August 14, 2020 and that she is not currently sexually active for the last 5 months. In the ED, patient is alert and oriented x3 and is not in distress. Lab test results were reviewed and showed a positive urine hCG test results, hCG quant of 2325 and acute leukocytosis of 12,500. Rest of the lab test results all nonactionable. Pelvic and transvaginal ultrasound showed single intrauterine with AUA of 28 weeks, 5 days with a heart rate of 140 bpm and no other significant sonographic abnormality. Patient was therefore discharged home on medications advised to follow-up with patient in 5 to 7 days. Patient was given a referral to follow-up with Dr. Worthington the INSURANCE CLAIM APPROVER physician websphere commerce consultant for further evaluation. Patient is afebrile return to the ED immediately if symptoms get worse. - Differential Diagnosis ; UTI; PID; STD; Ovarian cyst Critical care attestation.: If time is entered above; I have spent that time in minutes in the direct care of this critically ill patient, excluding procedure time. ED Disposition Clinical Impression: as incidental finding, Bacterial vaginosis Disposition: TO HOME OR SELFCARE Is pt being admited?: No Does the pt Need Aspirin: No Condition: Stable Instructions: Labor and Information, [id number], Third Trim hu of , Dalm-jo-Auzi, Bacterial Vaginosis, Kuxq-ik-Burw, Bacterial Vaginosis (ED) Additional Instructions: The lab test results showed elevated hCG quant level consistent with positive , and pelvic ultrasound showed intrauterine of approximately 28 weeks 5 days, with a normal heart rate of 140 with findings. Therefore follow-up with your INSURANCE CLAIM APPROVER physician Dr. Worthington as advised, return to the ED immediately if symptoms get worse. Prescriptions: metroNIDAZOLE [Flagyl] 500 mg PO Q12HR #14 tab Referrals: YORDAN WORTHINGTON MD [Staff Physician] - 3-5 Days Forms: STI Treatment and Prevention Time of Disposition: :21 Print Language: MEXICAN
--- NOTE | 2020-08-20 01:34 | Ultrasound Report ---
ULTRASOUND OBSTETRIC COMPLETE INDICATION / CLINICAL INFORMATION: Positive . Clinical Gestational Age (GA) in weeks, days: Unknown TECHNIQUE: Transabdominal. Transvaginal COMPARISON: None available. FINDINGS: NUMBER: Single PRESENTATION: cephalic PLACENTA: anterior and free of the os. MATERNAL ADNEXA: No significant abnormality. AMNIOTIC FLUID VOLUME: normal AMNIOTIC FLUID INDEX (SUDHA) in cm (if measured): 8.7 cm ANATOMY: Detailed anatomical survey was not performed. There was no obvious abnormality. MEASUREMENTS: - Biparietal Diameter = 7.2 cm = 28 weeks,6 days - Head Circumference = 26.4 cm = 28 weeks, 5 days - Abdominal Circumference = 24.65 cm = 28 weeks, 6 days - Femur Length = 5.3 cm = 28 weeks, 2 days - Estimated Weight (in grams, if calculated): 1260 3:00 AM - Heart Rate (beats per minute): 140 bpm ADDITIONAL FINDINGS: None. PERCENTILE ESTIMATED WEIGHT (if calculated): AVERAGE ULTRASOUND AGE (AUA) in weeks, days = 28 weeks 5 days IMPRESSION: 1. Single intrauterine with AUA of 28 weeks, 5 days 2. No significant sonographic abnormality. Signer Name: Sarah Salomon MD Signed: 08/20/2020 1:30 AM Workstation Name: [id number]
[2020-08-20 02:43] VITALS: BP 138/80
== END 2020-08-20 02:11 | disposition home or self-care (01) ==
LOC: ED 17:09
DX: O26.893 Other specified pregnancy related conditions, third trimester (principal); O23.593 Infection of other part of genital tract in pregnancy, third trimester; B96.89 Other specified bacterial agents as the cause of diseases classified elsewhere; Z3A.28 28 weeks gestation of pregnancy
CPT/HCPCS: 36415; 76801; 76805; 76817; 80053; 81001; 81025; 84702; 85025; 87210

== ENCOUNTER 2020-08-29 09:23 | Outpatient (CLI) | payer OTHER ==
[2020-08-29] MEDS ORDERED: LACTATED RINGERS 500 ML IV ONE (10:18)
[2020-08-29 10:30] VITALS: BP 129/76
[2020-08-29 12:57] LABS: Bacteria,Urine 3+ /HPF (Negative); Bilirubin,Urine NEG (Negative); Blood,Urine NEG (Negative); Color,Urine Yellow (Yellow); Mucus,Urine 1+ /HPF; Urobilinogen,Urine < 2.0 mg/dL (<2.0)
[2020-08-29] MEDS ORDERED: LIDOCAINE-MPF (1%) 10 MG/1 ML VIAL 5 ML INFILTRATI ONE (13:38)
[2020-08-29] MEDS ORDERED: levoFLOXacin 500 MG TAB PO NR (14:30)
== END 2020-08-29 14:41 | disposition home or self-care (01) ==
LOC: TRG 09:23 → APU 09:25 → TRG 14:41
PROVIDERS: ATTEND Obstetrics & Gynecology
DX: O26.899 Other specified pregnancy related conditions, unspecified trimester (principal); R10.32 Left lower quadrant pain; Z3A.00 Weeks of gestation of pregnancy not specified
CPT/HCPCS: 59025; 81001

== ENCOUNTER 2020-09-06 08:53 | Outpatient (CLI) | payer OTHER ==
[2020-09-06 09:31] VITALS: BP 125/68
[2020-09-06] MEDS ORDERED: LACTATED RINGERS 500 ML IV ONE (09:44)
[2020-09-06 11:26] LABS: Bacteria,Urine 4+ /HPF (Negative); Bilirubin,Urine NEG (Negative); Blood,Urine NEG (Negative); Color,Urine Yellow (Yellow); Mucus,Urine 2+ /HPF
== END 2020-09-06 11:55 | disposition home or self-care (01) ==
LOC: TRG 08:53 → APU 08:54 → TRG 11:55
PROVIDERS: ATTEND Obstetrics & Gynecology
DX: O26.853 Spotting complicating pregnancy, third trimester (principal); Z3A.31 31 weeks gestation of pregnancy
CPT/HCPCS: 59025; 81001; 87086

== ENCOUNTER 2020-09-13 11:27 | Outpatient (CLI) | payer OTHER ==
[2020-09-13 13:01] VITALS: BP 119/67
[2020-09-13] MEDS ORDERED: LACTATED RINGERS 500 ML IV ONE (13:37)
== END 2020-09-13 13:50 | disposition home or self-care (01) ==
LOC: TRG 11:27 → APU 11:35 → TRG 13:50
PROVIDERS: ATTEND Obstetrics & Gynecology
DX: O36.8130 Decreased fetal movements, third trimester, not applicable or unspecified (principal); Z3A.32 32 weeks gestation of pregnancy
CPT/HCPCS: 59025

== ENCOUNTER 2020-09-19 20:11 | Outpatient (CLI) | payer OTHER ==
[2020-09-19 20:32] VITALS: BP 130/69
[2020-09-19] MEDS ORDERED: LACTATED RINGERS 1,000 ML IV ONE (20:40)
[2020-09-19 21:17] LABS: Bacteria,Urine 1+ /HPF (Negative); Bilirubin,Urine NEG (Negative); Blood,Urine NEG (Negative); Color,Urine Yellow (Yellow); Hyaline Casts,Urine 1 /LPF; Mucus,Urine FEW /HPF
== END 2020-09-20 00:40 | disposition home or self-care (01) ==
LOC: TRG 20:11 → APU 20:22 → TRG 09-20 00:40
PROVIDERS: ATTEND Obstetrics & Gynecology
DX: O26.893 Other specified pregnancy related conditions, third trimester (principal); R10.2 Pelvic and perineal pain; Z3A.33 33 weeks gestation of pregnancy
CPT/HCPCS: 59025; 81001

== ENCOUNTER 2022-01-31 05:17 | Inpatient (IN) | payer MEDICAID, OTHER ==
[2022-01-31] MEDS ORDERED: LANOLIN/ZINC/DIMETHICONE (LANSINOH) 7 GM TP PRN ×2 (06:22→12:30)
[2022-01-31] MEDS ORDERED: NALOXONE 0.4 MG/1 ML INJ IV PRN ×2 (06:22→12:30)
[2022-01-31] MEDS ORDERED: WITCH HAZEL/ GLYCERIN PAD TP PRN ×2 (06:22→12:30)
[2022-01-31] MEDS ORDERED: OXYTOCIN DRIP 30 UNITS/500 ML BAG IV SCH ×3 (07:00→12:30)
[2022-01-31 07:08] LABS: Basophils # (Auto) 0.1 K/mm3 (0.0-0.1); Basophils % (Auto) 0.5 % (0.0-1.8); Eosinophils # (Auto) 0.1 K/mm3 (0.0-0.4); Eosinophils % (Auto) 0.5 % (0.0-4.3); Hematocrit 36.3 % (30.3-42.9); Hemoglobin 12.1 gm/dl (10.1-14.3); Lymphocytes # (Auto) 2.5 K/mm3 (1.2-5.4); Lymphocytes % (Auto) 17.9 % (13.4-35.0); Mean Corpuscular HGB Conc 34 % (30-34); Mean Corpuscular Volume 95 fl (79-97); Monocytes # (Auto) 0.9 K/mm3 (0.0-0.8); Monocytes % (Auto) 6.3 % (0.0-7.3); Platelet Count 298 K/mm3 (140-440); Red Blood Count 3.81 M/mm3 (3.65-5.03)
--- NOTE | 2022-01-31 07:29 | Anesthesia Consultation ---
Anesthesia Consult and Med Hx Date of service: 01/31/22 - Airway Anesthetic Teeth Evaluation: Good ROM Head & Neck: Adequate Mental/Hyoid Distance: Adequate Mallampati Class: Class II Intubation Access Assessment: Probably Good - Pulmonary Exam CTA: Yes - Cardiac Exam Cardiac Exam: RRR - Pre-Operative Health Status ASA Pre-Surgery Classification: ASA3 Proposed Anesthetic Plan: Spinal - Pulmonary Hx Smoking: Yes Hx Asthma: No COPD: No Hx Pneumonia: No - Cardiovascular System Hx Hypertension: No - Central Nervous System Hx Seizures: No Hx Psychiatric Problems: No - Endocrine Hx Renal Disease: No Hx End Stage Renal Disease: No Hx Hypothyroidism: No Hx Hyperthyroidism: No - Hematic Hx Anemia: No Hx Sickle Cell Disease: No - Other Systems Hx Alcohol Use: (not since ) Hx Cancer: No Hx Obesity: Yes
--- NOTE | 2022-01-31 07:29 | Anesthesia Day of Surgery ---
Anesthesia Day of Surgery - Day of Surgery Patient Examined: Yes Patient H&P Reviewed: Yes Patient is NPO: Yes
[2022-01-31] MEDS ORDERED: LACTATED RINGERS 1,000 ML IV SCH (07:30)
[2022-01-31] MEDS ORDERED: METOCLOPRAMIDE 10 MG/2 ML INJ IV SCH (07:30)
[2022-01-31] MEDS ORDERED: BICITRA ORAL LIQD 30ML PO SCH (07:30)
[2022-01-31] MEDS ORDERED: LACTATED RINGERS 1,000 ML IV ONE (07:30)
[2022-01-31] MEDS ORDERED: FAMOTIDINE 20 MG/2 ML INJ IV SCH (07:30)
--- NOTE | 2022-01-31 07:43 | History and Physical Report ---
History of Present Illness Date of examination: 01/31/22 Date of admission: 01/31/22 05:17 Chief complaint: scheduled section History of present illness: Pt is 36 year old RENEE 02/07/22 at 39w0d who presents for repeat section. She denies vaginal bleeding or leakage of fluid. She has had care at [facility] since 12 wks complicated by morbid obesity, previous section, genital herpes without lesion or prodrome, sand lapse in care from 18-31. She is GBS negative. 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 History: herpes (without lesion or prodrome ), trichomonas (remote history ) Family/Genetic History: diabetes, cancer Social history: no significant social history - Obstetrical History Expected Date of Delivery: 02/07/22 Actual Gestation: 39 Week(s) 0 Day(s) : 3 Para: 1 Hx # Term Pregnancies: 1 Number of Pregnancies: 0 Spontaneous Abortions: 1 Induced : 0 Number of Living Children: 1 Medications and Allergies Allergies Allergy/AdvReac Type Severity Reaction Status Date / Time Penicillins Allergy Hives Verified 01/25/22 16:40 Home Medications Medication Instructions Recorded Confirmed Last Taken Type Pnv,Calcium 72/Iron,Carb/Folic 1 tab PO DAILY 01/25/22 01/25/22 Unknown History [ Plus Iron Tablet] Active Meds: Active Medications Citric Acid/Sodium Citrate (Bicitra Oral Liqd 30ml) 30 ml PO ONCE@0730 MICHELE Stop: 01/31/22 17:00 Last Admin: 01/31/22 07:27 Dose: 30 ml Famotidine (Famotidine 20 Mg/2 Ml Inj) 20 mg IV PREOP MICHELE Stop: 01/31/22 17:00 Last Admin: 01/31/22 07:28 Dose: 20 mg Oxytocin/Sodium Chloride (Pitocin/Ns 30 Unit/500ml) 30 units in 500 mls @ 40 mls/hr IV TITR MICHELE; Protocol Clindamycin HCl (Cleocin 900 Mg/50 Ml) 900 mg in 50 mls @ 100 mls/hr IV PREOP NR; Protocol Stop: 01/31/22 17:00 Lactated Ringer's (Lactated Ringers) 1,000 mls @ 2,250 mls/hr IV PREOP MICHELE Stop: 02/01/22 07:57 Last Admin: 01/31/22 07:30 Dose: 2,250 mls/hr Oxytocin/Sodium Chloride (Pitocin/Ns 30 Unit/500ml) 30 units in 500 mls @ 0 mls/hr IV TITR MICHELE; Protocol Lactated Ringer's (Lactated Ringers) 1,000 mls @ 999 mls/hr IV BOLUS ONE Stop: 01/31/22 08:30 Gentamicin Sulfate/Sodium Chloride (Gentamicin/Ns 120mg/100ml) 120 mg in 100 mls @ 100 mls/hr IV PREOP NR Stop: 01/31/22 17:00 Metoclopramide HCl (Metoclopramide 10 Mg/2 Ml Inj) 10 mg IV ONCE@30 MICHELE Stop: 01/31/22 15:00 Last Admin: 01/31/22 07:27 Dose: 10 mg Multi-Ingredient Ointment (Lanolin/Zinc/Dimethicone (Lansinoh) 7 Gm) 1 applic TP PRN PRN PRN Reason: dryness/cracking Naloxone HCl (Naloxone 0.4 Mg/1 Ml Inj) 0.1 mg IV Q2MIN PRN PRN Reason: Res Rate </= 8 or 02 SAT < 92% Sodium Chloride (Sodium Chloride 0.9% 10 Ml Flush Syringe) 10 ml IV PRN PRN PRN Reason: LINE FLUSH Witch Annabelle/Glycerin (Witch Annabelle/ Glycerin Pad) 1 each TP PRN PRN PRN Reason: Hemorrhoids/cleansing/soothing Review of Systems All systems: negative - Vital Signs Vital signs: Vital Signs Pulse Ox 100 01/31/22 06:17 Temp Pulse Resp BP Pulse Ox 87 96 01/31/22 07:35 01/31/22 07:35 - Physical Exam Breasts: Positive: deferred Abdomen: Positive: soft (gravid, obesity ) Uterus: Positive: enlarged (gravid ) Extremities: Positive: edema (trace ) - Obstetrical FHR: auscultation normal Uterine Contraction Monitor Mode: External Uterine Contraction Pattern: Absent Uterine Tone Measurement Phase: Resting Results Result Diagrams: 01/31/22 05:42 Abnormal lab results 01/31/22 Range/Units 05:42 WBC 14.2 H (4.5-11.0) K/mm3 Anson # (Auto) 0.9 H (0.0-0.8) K/mm3 Seg Neutrophils % 74.8 H (40.0-70.0) % Seg Neutrophils # 10.6 H (1.8-7.7) K/mm3 All other labs normal. Assessment and Plan A: IUP at 39w0d Previous x 1 Morbid Obesity Penicillin Allergy Genital Herpes GBS Negative P: Proceed with repeat section and other indicated procedures
[2022-01-31] MEDS ORDERED: GENTAMICIN/NS 120MG/100ML 120 MG/100 ML BAG IV NR (08:00)
[2022-01-31] MEDS ORDERED: PHENYLEPHRINE/NS 1,000 MCG/10 ML SYRINGE (OR USE) IV ONE (08:06)
[2022-01-31] MEDS ORDERED: BUPIVACAINE/PF (0.5%) 5 MG/1 ML 30 ML VIAL INFILTRATI ONE (08:06)
[2022-01-31] MEDS ORDERED: KETOROLAC 30 MG/1 ML INJ ONE (08:06)
[2022-01-31] MEDS ORDERED: ONDANSETRON 4 MG/2 ML INJ ONE (08:06)
[2022-01-31] MEDS ORDERED: dexAMETHasone 20 MG/5 ML VIAL ONE (08:06)
[2022-01-31] MEDS ORDERED: TRANEXAMIC ACID 1,000 MG/10 ML ONE (08:13)
--- NOTE | 2022-01-31 09:21 | Procedure Note ---
OB Delivery Note - Delivery Date of Delivery: 01/31/22 Surgeon: IZAIAH MORTON Estimated blood loss: other (587 mL) - Section Preop diagnosis: repeat Postop diagnosis: same section procedure: section, repeat low transverse Disposition: PACU Complications: none Narrative: Please see delivery note - A at 1 minute: 8 at 5 minutes: 9 Infant Gender: Female (3000g (6lb 10oz) @ 0829 am)
--- NOTE | 2022-01-31 09:26 | Operative Report ---
Operative Report Operative Report: Date of procedure : January 31, 2022 Preoperative diagnosis: 1) IUP at 39w0d 2) Previous x 1 3) Morbid Obesity BMI 45 Postoperative diagnosis: Same Procedure: Repeat low transverse section Surgeon: Joanne Tovar M.D. Anesthesia: Regional Findings: 1) Viable female , Apgars 8 and 9, weight 3000 g, (6 lb 10 oz) in cephalic presentation. Nuchal cord x 1 2) Normal-appearing uterus ovaries and tubes Estimated blood loss: 537 mL IV fluids: 1200 mL Urine output: 100 mL, clear but concentrated at the end of the procedure Drains: Tatum to gravity Specimens: None Complications:None. Counts correct x 3 Disposition: Stable to PACU Indication for procedure: Pt is a 36 year old female at 39w0d with a history of one prior who presents for repeat section. Operation in detail: After the risks, benefits, alternatives and complications were explained to the patient she gave informed consent for the procedure. She was subsequently taken to the operating room where regional anesthesia was noted to be adequate. She was placed in the dorsal supine position with leftward tilt and prepped and draped in a normal sterile fashion. heart tones were noted prior to incision. A timeout was performed. A Pfannenstiel skin incision was made with the knife and carried down to the layer of the fascia with the Bovie. The fascia was incised in the midline and the fascial incision was extended bilaterally with the Bovie. The fascial incision was then stretched. The rectus muscles were then in the midline for adequate visualization. The peritoneum was then entered sharply between two Janina clamps. The peritoneal incision was extended with good visualization of the bladder. The peritoneal incision was then stretched. An Jaspal retractor was placed. The bladder blade was then placed. The vesicouterine peritoneum was grasped with smooth pick ups and incised with Metzenbaum scissors. A bladder flap was then created digitally and the bladder blade was replaced. A transverse incision was made in the lower uterine segment with a knife and extended bilaterally with the bandage scissors. Amniotomy was performed with egress of clear fluid. head delivered with ease, nuchal cord x 1 reduced, followed by shoulders and body. bulb suctioned at delivery. Cord clamped and cut. handed to NICU staff in attendance. Cord blood was collected. The placenta was then delivered manually. The uterus was then exteriorized and cleared of all clots and debris. The hysterotomy was then reapproximated with 0 Monocryl in a running locked fashion. A second layer of the same suture was used in imbricating fashion. The hyster otomy was inspected and hemostasis was noted. The gutters were irrigated and cleared of all clots and debris. The uterus was placed back into the peritoneal cavity. The hysterotomy was again inspected and noted to be hemostatic. Surgicel was placed over the hysterotomy. The Jaspal retractor was removed. The peritoneum was reapproximated with 0 Monocryl in a running fashion incorporating the rectus muscles. Surgicel was placed over the rectus muscles. The fascia was reapproximated with 0 Vicryl in a running fashion. The subcutaneous tissue was reapproximated with 3-0 Vicryl in a running fashion. The skin was reapproximated with 3-0 Monocryl es subcuticular fashion. The incision was then covered with steri strips and a pressure dressing. The procedure was then ended. The patient tolerated the procedure well and was taken to the PACU in stable condition. All instrument, lap, and needle counts were correct 3.
[2022-01-31] MEDS ORDERED: D5W/LACTATED RINGERS 1,000 ML IV SCH (12:00)
[2022-01-31] MEDS ORDERED: MORPHINE 4 MG/1 ML INJ IV PRN (12:30)
[2022-01-31] MEDS ORDERED: ONDANSETRON 4 MG/2 ML INJ IV PRN (12:30)
[2022-01-31] MEDS ORDERED: SIMETHICONE 80 MG CHEW TAB PO PRN (13:00)
[2022-01-31] MEDS: KETOROLAC 30 MG/1 ML INJ IV SCH (13:45)
[2022-01-31] MEDS: IBUPROFEN 800 MG TAB PO SCH (14:10)
[2022-01-31] MEDS: CLINDAMYCIN 600 MG/50 mL 600 MG/50 ML BAG IV SCH (17:23)
[2022-01-31] MEDS: MORPHINE 2 MG/1 ML INJ IV PRN (17:23)
[2022-01-31 21:52] LABS: Hematocrit 32.2 % (30.3-42.9); Hemoglobin 10.5 gm/dl (10.1-14.3)
[2022-01-31] MEDS ORDERED: MAGNESIUM HYDROXIDE (MOM) ORAL LIQD UDC PO PRN (22:00)
[2022-02-01] MEDS: CLINDAMYCIN 600 MG/50 mL 600 MG/50 ML BAG IV SCH (01:02)
[2022-02-01] MEDS: MORPHINE 2 MG/1 ML INJ IV PRN (03:22)
[2022-02-01] MEDS: IBUPROFEN 800 MG TAB PO SCH ×3 (07:00→19:04)
[2022-02-01] MEDS: KETOROLAC 30 MG/1 ML INJ IV SCH (08:01)
[2022-02-01] MEDS: oxyCODONE /ACETAMINOPHEN 5-325MG TAB PO PRN ×4 (08:06→22:45)
[2022-02-01] MEDS ORDERED: TETANUS,DIPH,PERTUSS(ACELL) VACCINE 0.5 ML SYRINGE IM ONE (09:00)
[2022-02-01] MEDS ORDERED: MEASLES, MUMPS & RUBELLA 12,500 UNIT/0.5 ML VACCINE SUB-Q ONE (10:00)
--- NOTE | 2022-02-01 11:02 | Post Anesthesia Evaluation ---
- Post Anesthesia Evaluation Patient Participated: Yes Airway Patent: Yes Stable Respiratory Function: Yes Nausea/Vomiting: No Temp > 96.8F: Yes Pain Manageable: Yes Adequeate Hydration: Yes Anesthesia Complications: No Block Receding Appropriately: Yes
--- NOTE | 2022-02-01 11:19 | History and Physical Report ---
History of Present Illness Date of examination: 01/31/22 Chief complaint: scheduled section History of present illness: Pt is a 36 year old female RENEE 02/07/[birth year] at 39w0d who presents for scheduled section secondary to previous x 1. She denies vaginal bleeding or leakage of fluid. She has had limited care at [facility] since 12 wks complicated by morbid obesity, previous section, genital herpes without lesion or prodrome, and lapse in care from 18-31 wks. She is GBS negative. 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 History: herpes, trichomonas (remote history ) Family/Genetic History: diabetes, cancer Social history: no significant social history - Obstetrical History Expected Date of Delivery: 02/07/22 Actual Gestation: 38 Week(s) 6 Day(s) : 3 Para: 1 Hx # Term Pregnancies: 1 Number of Pregnancies: 0 Spontaneous Abortions: 1 Induced : 0 Number of Living Children: 1 Medications and Allergies Allergies Allergy/AdvReac Type Severity Reaction Status Date / Time Penicillins Allergy Hives Verified 01/25/22 16:40 Home Medications Medication Instructions Recorded Confirmed Last Taken Type Pnv,Calcium 72/Iron,Carb/Folic 1 tab PO DAILY 01/25/22 01/31/22 2 Days Ago History [ Plus Iron Tablet] ~01/29/22 1 tablet Active Meds: Active Medications Famotidine (Famotidine 20 Mg/2 Ml Inj) 20 mg IV ONCE ONE Stop: 01/31/22 06:01 Metoclopramide HCl (Metoclopramide 10 Mg/2 Ml Inj) 10 mg IV ONCE ONE Stop: 01/31/22 06:01 Review of Systems All systems: negative - Vital Signs Vital signs: Vital Signs Temp Pulse Resp BP Pulse Ox 98.1 F 90 16 130/81 98 01/30/22 09:00 01/30/22 09:00 01/30/22 09:00 01/30/22 09:00 01/30/22 09:00 Temp Pulse Resp BP Pulse Ox 98.1 F 90 16 130/81 98 01/30/22 09:00 01/30/22 09:00 01/30/22 09:00 01/30/22 09:00 01/30/22 09:00 - Physical Exam Breasts: Positive: deferred Abdomen: Positive: soft (obese, gravid ) Genitourinary (Female): Positive: normal external genitalia Uterus: Positive: enlarged (gravid ) - Obstetrical FHR: auscultation normal Results Result Diagrams: 01/31/22 20:41 Abnormal lab results 01/30/22 Range/Units Unknown WBC 11.8 H (4.5-11.0) K/mm3 All other labs normal. Assessment and Plan A: IUP at 39w0d Previous x 1 Morbid Obesity Genital Herpes GBS Negative P: Proceed with repeat section and other indicated procedures [facility] preop
--- NOTE | 2022-02-01 11:56 | Progress Note ---
Assessment and Plan - Patient Problems (1) Status post repeat low transverse section Current Visit: Yes Status: Acute Plan to address problem: Continue routine PP orders Keep dressing clean and dry, remove on POD#2 Anticipate d/c home in 24-48 hr if stable Subjective - Subjective Date of service: 02/01/22 Principal diagnosis: S/P repeat C/S; POD#1 Interval history: Pt is 36 year old RENEE 02/07/22 at 39w0d who presents for repeat section. She denies vaginal bleeding or leakage of fluid. She has had care at [facility] since 12 wks complicated by morbid obesity, previous section, genital herpes without lesion or prodrome, sand lapse in care from 18-31. She is GBS negative. Delivered viable female via C/S. Patient reports: appetite normal, voiding normally, pain well controlled (with medications), flatus, ambulating normally, no bowel movement : doing well, bottle feeding (and ) Objective - Vital Signs Latest vital signs: Vital Signs Temp Pulse Resp BP BP Pulse Ox Pulse Ox 02/01/22 09:30 96 02/01/22 08:04 98.0 F 64 20 108/58 96 02/01/22 05:25 97.7 F 68 20 141/73 98 02/01/22 03:52 18 02/01/22 03:22 18 02/01/22 01:01 98.5 F 70 20 110/61 94 01/31/22 23:05 18 01/31/22 22:35 18 01/31/22 21:04 98.7 F 60 20 116/66 95 01/31/22 20:35 98 01/31/22 15:36 97.7 F 58 L 18 127/68 96 Intake and Output 01/31/22 02/01/22 02/01/22 23:59 07:59 15:59 Intake Total 650 720 120 Output Total 800 800 200 Balance -150 -80 -80 Intake: IV 50 CLEOCIN 600 MG/50 mL 600 50 mg In 50 ml @ 100 mls/hr IV Q8H [facility] Rx#:[id number] Oral 600 720 120 Output: Urine 800 800 200 Indwelling Catheter 600 Void 200 800 200 Other: Total, Intake Amount 240 240 120 Total, Output Amount 200 400 200 # Voids Indwelling Catheter 1 Void 1 - Exam Breasts: Present: normal Cardiovascular: Present: Regular rate Lungs: Present: Normal air movement Abdomen: Present: soft, tenderness Uterus: Present: firm, fundal height below umbilicus (U-2) Deep Tendon Reflex Grade: Normal +2 Incision: Present: dressed (no shadow drainage or bleeding noted, abdominal binder in place)
[2022-02-02] MEDS: IBUPROFEN 800 MG TAB PO SCH ×3 (00:29→14:39)
--- NOTE | 2022-02-02 07:41 | Progress Note ---
Assessment and Plan A: POD#2 s/p repeat section Morbid Obesity P: Continue routine postop care Discharge home tomorrow with follow up in 2 wks for incision check Subjective - Subjective Date of service: 02/02/22 Principal diagnosis: S/P repeat C/S; POD#2 Interval history: Pt reports ambulating without difficulty, voiding without difficulty and decreasing lochia. + flatus. No bowel movement. Patient reports: appetite normal, voiding normally, pain well controlled, flatus, ambulating normally, no bowel movement : doing well Objective - Vital Signs Latest vital signs: Vital Signs Temp Pulse Resp BP Pulse Ox Pulse Ox 02/02/22 00:39 97.7 F 79 20 131/74 98 02/01/22 22:08 100 02/01/22 15:58 98.6 F 71 16 106/59 97 02/01/22 09:30 96 02/01/22 08:04 98.0 F 64 20 108/58 96 Intake and Output 02/01/22 02/02/22 02/02/22 22:59 06:59 14:59 Intake Total 480 240 Balance 480 240 Intake: Oral 480 240 Other: Total, Intake Amount 240 240 Voiding Method Toilet # Voids Void 1 1 - Exam Breasts: Present: deferred Abdomen: Present: soft (obese) Uterus: Present: fundal height below umbilicus Extremities: Present: edema (trace) Incision: Present: dressed
[2022-02-02 08:31] VITALS: BP 133/71
[2022-02-02] MEDS: oxyCODONE /ACETAMINOPHEN 5-325MG TAB PO PRN ×2 (08:39→12:04)
--- NOTE | 2022-02-02 12:32 | Discharge Summary ---
Providers - Providers Date of Admission: 01/31/22 05:17 Date of discharge: 02/02/22 Attending physician: IZAIAH MORTON 01/31/22 11:48 Consult to Md Senior Research Scientist [CONS] Routine Reason For Exam: Primary care physician: KESHAV ELIZABETH Hospitalization Reason for admission: section Delivery: Procedure: section, repeat low transverse Procedure details: Please see operative report Incision: intact Other procedures: none complications: none Discharge diagnosis: IUP at term delivered [place] baby: female Hospital course: This patient admitted for repeat section which she tolerated well. The remainder of her postoperative course was uncomplicated and she met discharge criteria on postoperative day #2. She will follow-up in the office in 2 weeks for an incision check. Condition at discharge: Stable Disposition: 01 HOME / SELF CARE / HOMELESS - Discharge Diagnoses (1) Morbid obesity Status: Acute (2) Status post repeat low transverse section Status: Acute (3) Term of female Status: Acute Plan - Discharge Medications Prescriptions: Ibuprofen [Motrin] 800 mg PO Q8HR PRN #30 tablet PRN Reason: Pain, Moderate (4-6) oxyCODONE /ACETAMINOPHEN [Percocet 5/325] 1 tab PO Q6HR PRN #30 tablet PRN Reason: Pain - Provider Discharge Summary Activity: routine, no sex for 6 weeks, no heavy lifting 4 weeks, no strenuous exercise Diet: routine Instructions: routine Additional instructions: [] Smoking cessation referral if applicable(refer to patient education folder for contact #) [] Refer to [facility] Booklet Call your doctor immediately for: * Fever > 100.5 * Heavy vaginal bleeding ( >1 pad per hour) * Severe persistent headache * Shortness of breath * Reddened, hot, painful area to leg or breast * Drainage or odor from incision. * Keep incision clean and dry at all times and follow doctor's instructions regarding bathing/showering - Follow up plan Follow up: IZAIAH MORTON MD [Staff Physician] - 14 Days (Please call to schedule incision check )
== END 2022-02-02 16:40 | disposition home or self-care (01) | DRG 765 ==
LOC: APU 05:17 → OB 10:45
PROVIDERS: ADMIT Obstetrics & Gynecology; ATTEND Obstetrics & Gynecology
PROC: 10D00Z1 Extraction of Products of Conception, Low, Open Approach (ICD-10-PCS; principal; 2022-01-31)
PROC: 3E0234Z Introduction of Serum, Toxoid and Vaccine into Muscle, Percutaneous Approach (ICD-10-PCS; 2022-02-01)
PROC: 3E0134Z Introduction of Serum, Toxoid and Vaccine into Subcutaneous Tissue, Percutaneous Approach (ICD-10-PCS; 2022-02-01)
DX: O34.211 Maternal care for low transverse scar from previous cesarean delivery (principal); O98.32 Other infections with a predominantly sexual mode of transmission complicating childbirth; A60.00 Herpesviral infection of urogenital system, unspecified; O99.214 Obesity complicating childbirth; E66.01 Morbid (severe) obesity due to excess calories; Z20.822 Contact with and (suspected) exposure to COVID-19; O69.81X0 Labor and delivery complicated by cord around neck, without compression, not applicable or unspecified; Z37.0 Single live birth; Z3A.39 39 weeks gestation of pregnancy; Z23 Encounter for immunization; Z88.0 Allergy status to penicillin
CPT/HCPCS: 36415; 85014; 85018; 85025; 85027; 86592; 86850; 86900; 86901; G0378; J3490; J7060; J7121; J7502; J1100; J1885; J2270; J2370; J2405; J2765; J7120; U0003